=== PATIENT | female | born 1985 | race Caucasian/White ===

== ENCOUNTER 2020-09-30 13:30 | Emergency (ER) | payer SELFPAY ==
[~2020-09-30] VITALS: Ht 157.5 cm; Wt 70.7 kg
--- NOTE | 2020-09-30 13:46 | ED Respiratory ---
General Chief Complaint: Respiratory Problems Stated Complaint: SOB Source: patient Exam Limitations: no limitations History of Present Illness Date Seen by Provider: Sep 30, 2020 Time Seen by Provider: 13:35 Initial Comments Patient is a 35-year-old female who presents to the emergency room with a chief complaint of shortness of breath and cough. Patient states that over the course of the last 3 weeks she has had repeated exacerbations of her difficulty breat michael. She has had 2 rounds of steroids and 1 round of azithromycin. Patient states that she does smoke sporadically. Patient tells me that she does have an admitted course of COPD. Patient states that she has not had any fevers chills. She has had a little bit of a sore throat. No nausea vomiting or diarrhea. No symptoms. Last menstrual cycle was about 3 weeks ago she does have a tubal ligation. Patient denies any exposures to fumes or smoke. She denies recent long distance travel. She denies any family history of blood clots. She denies any calf pain or swelling. She had a little bilateral knee pain a couple of days ago. Patient states that during the course of the last 3 weeks she has been through 2 inhalers. She last used steroids about 4 days ago. She has been incarcerated for the last 24 hours. Patient states she did have a rapid Covid swab done 2 days ago that was negative. All other review of systems reviewed and negative except as stated. Timing/Duration: week, getting worse Severity: moderate Prior Episodes/Possible Cause: frequent episodes Modifying Factors: Improves With Albuterol Inhaler, Improves With Albuterol Nebulizer, Improves With Coughing Associated Symptoms: shortness of breath Allergies and Home Medications Allergies Coded Allergies: Penicillins (Verified Allergy, Unknown, 09/30/20) Home Medications Albuterol/Ipratropium 4 Gm Aero, 2 PUFF IH Q6H Prescribed by: SIDNEY VALDIVIA on 09/30/20 144 Prednisone 20 Mg Tab, 40 MG PO DAILY Prescribed by: SIDNEY VALDIVIA on 09/30/20 1447 Patient Home Medication List Home Medication List Reviewed: Yes Review of Systems Review of Systems Constitutional: see HPI EENTM: throat pain Respiratory: cough, short of breath Cardiovascular: no symptoms reported Gastrointestinal: no symptoms reported Genitourinary: no symptoms reported : No Musculoskeletal: no symptoms reported Skin: no symptoms reported All Other Systems Reviewed Negative Unless Noted: Yes Physical Exam Vital Signs - First Documented 09/30/20 13:36 Temp 36.9 Pulse 111 Resp 24 B/P (MAP) 134/84 (101) Pulse Ox 94 O2 Delivery Room Air Capillary Refill : Height: '" Weight: lbs. oz. kg; BMI Method: General Appearance: WD/WN, mild distress Eyes: Bilateral Eye Normal Inspection, Bilateral Eye PERRL, Bilateral Eye EOMI HEENT: PERRL/EOMI Respiratory: decreased breath sounds, accessory muscle use, wheezing Cardiovascular: regular rate, rhythm, tachycardia Gastrointestinal: normal bowel sounds, non tender, soft Extremities: normal range of motion, non-tender, normal inspection, no pedal edema, no calf tenderness Neurologic/Psychiatric: no motor/sensory deficits, alert, normal mood/affect, oriented x 3 Skin: normal color, warm/dry Progress/Results/Core Measures Suspected Sepsis SIRS Temperature: Pulse: Respiratory Rate: Laboratory Tests 09/30/20 13:45: White Blood Count 12.2H Blood Pressure / Mean: Laboratory Tests 09/30/20 13:45: Creatinine 0.71, Platelet Count 314 Results/Orders Lab Results Laboratory Tests Test 09/30/20 13:45 Range/Units White Blood Count 12.2 H 4.3-11.0 10^3/uL Red Blood Count 4.71 4.35-5.85 10^6/uL Hemoglobin 12.4 11.5-16.0 G/DL Hematocrit 38 35-52 % Mean Corpuscular Volume 80 80-99 FL Mean Corpuscular Hemoglobin 26 25-34 PG Mean Corpuscular Hemoglobin Concent 33 32-36 G/DL Red Cell Distribution Width 15.4 H 10.0-14.5 % Platelet Count 314 130-400 10^3/uL Mean Platelet Volume 9.6 7.4-10.4 FL Immature Granulocyte % (Auto) 0 % Neutrophils (%) (Auto) 70 42-75 % Lymphocytes (%) (Auto) 21 12-44 % Monocytes (%) (Auto) 5 0-12 % Eosinophils (%) (Auto) 4 0-10 % Basophils (%) (Auto) 0 0-10 % Neutrophils # (Auto) 8.5 H 1.8-7.8 X 10^3 Lymphocytes # (Auto) 2.6 1.0-4.0 X 10^3 Monocytes # (Auto) 0.6 0.0-1.0 X 10^3 Eosinophils # (Auto) 0.4 H 0.0-0.3 10^3/uL Basophils # (Auto) 0.0 0.0-0.1 10^3/uL Immature Granulocyte # (Auto) 0.1 0.0-0.1 10^3/uL D-Dimer 0.39 0.00-0.49 UG/ML Sodium Level 137 135-145 MMOL/L Potassium Level 4.1 3.6-5.0 MMOL/L Chloride Level 104 98-107 MMOL/L Carbon Dioxide Level 22 21-32 MMOL/L Anion Gap 11 5-14 MMOL/L Blood Urea Nitrogen 18 7-18 MG/DL Creatinine 0.71 0.60-1.30 MG/DL Estimat Glomerular Filtration Rate > 60 BUN/Creatinine Ratio 25 Glucose Level 104 70-105 MG/DL Calcium Level 9.2 8.5-10.1 MG/DL My Orders Orders - SIDNEY VALDIVIA MD Cbc With Automated Diff (09/30/20 13:46) Basic Metabolic Panel (09/30/20 13:46) Fibrin Degradation Products (09/30/20 13:46) Chest 1 View Ap/Pa Only (09/30/20 13:46) Methylprednisolone Sod Succ (Solu-Medrol (09/30/20 14:00) Methylprednisolone Sod Succ (Solu-Medrol (09/30/20 14:15) Albuterol/Ipra Inhalation Soln (Duoneb I (09/30/20 14:15) Svn Small Volume Nebulizer (09/30/20 14:11) Albuterol/Ipra Inhalation Soln (Duoneb I (09/30/20 14:10) Medications Given in ED Current Medications Medications Dose Ordered Sig/Manuel Route Start Time Stop Time Status Last Admin Dose Admin Albuterol/ Ipratropium 3 ml ONCE ONCE INH 09/30/20 14:15 09/30/20 14:16 DC 09/30/20 14:13 3 ML Methylprednisolone Sodium Succinate 125 mg ONCE ONCE IVP 09/30/20 14:15 09/30/20 14:16 DC 09/30/20 14:10 125 MG Vital Signs/I&O 09/30/20 13:36 Temp 36.9 Pulse 111 Resp 24 B/P (MAP) 134/84 (101) Pulse Ox 94 O2 Delivery Room Air Capillary Refill : Progress Note : Time: 14:09 Progress Note Patient remains tight and wheezy. Still with mild to moderate respiratory distress, oxygen saturations off oxygen 91-92% when resting when taking a big deep breath she is 95%. 1445 Reevaluated, patient seems to be breathing much easier, no respiratory distress. LAbs within normal limits and Ddimer is negative. Patient just has a little scant expiratory wheeze noted on the right posterior lung arita. Patient is comfortable with discharge to home. All questions have been sought and a nswered. She will be discharged to home with prednisone and a Combivent inhaler. Diagnostic Imaging Diagonstic Imaging: Xray Plain Films/CT/US/NM/MRI: chest Comments [facility] [place]. [place], [place] NAME: ZAK HERNANDEZ [facility] REC#: [id number] PT STATUS: REG ER : 1985 PHYSICIAN: SIDNEY VALDIVIA MD ADMIT DATE: 09/30/20/ER FS Draft Date of Exam:09/30/20 CHEST 1 VIEW AP/PA ONLY INDICATION: short of breath and cough. TECHNIQUE: Single view chest 1:49 PM. CORRELATION STUDY: None FINDINGS: The heart size, mediastinal configuration and pulmonary vascularity are within normal limits. The lungs are clear with no consolidating infiltrate. There is no significant effusion or pneumothorax. IMPRESSION: 1. Negative for acute abnormality of the chest. Dictated on workstation # [id number] Dict: 09/30/20 1401 Trans: 09/30/20 1401 DO [id number] Interpreted by: CIARA SAINZ DO Electronically signed by: Departure Impression Primary Impression: COPD exacerbation Disposition: 01 HOME, SELF-CARE Condition: Stable Departure-Patient Inst. Decision time for Depature: 14:46 [address]: [facility] [place] Patient Instructions: Exacerbation of COPD Add. Discharge Instructions: Drink plenty of fluids to stay well-hydrated. Take the prednisone daily for the next 6 days as directed. I have also written you a prescription for a Combivent inhaler. Take this 2 puffs every 6 hours. You can use your albuterol inhaler in between as needed. Return to the emergency department for any worsening symptoms of shortness of breath, cough, any other emergent concerns. Scripts Albuterol/Ipratropium (Combivent Respimat Inhal [place]) 4 Gm Aero 2 PUFF IH Q6H, #1 INH Prov: SIDNEY VALDIVIA MD 09/30/20 Prednisone (Prednisone) 20 Mg Tab 40 MG PO DAILY, #6 TAB 0 Refills Prov: SIDNEY VALDIVIA MD 09/30/20 SIDNEY VALDIVIA MD Sep 30, 2020 13:45
[2020-09-30 13:57] LABS: HEMATOCRIT 38 % (35-52); HEMOGLOBIN 12.4 G/DL (11.5-16.0); MEAN CORPUSCULAR HEMOGLOBIN 26 PG (25-34); MEAN CORPUSCULAR HGB CONC 33 G/DL (32-36); MEAN CORPUSCULAR VOLUME 80 FL (80-99); MEAN PLATELET VOLUME 9.6 FL (7.4-10.4); NEUTROPHILS % (AUTO) 70 % (42-75); PLATELET COUNT 314 10^3/uL (130-400); WHITE BLOOD COUNT 12.2 10^3/uL (4.3-11.0)
[2020-09-30 13:58] LABS: BASOPHILS % (AUTO) 0 % (0-10); EOSINOPHILS # (AUTO) 0.4 10^3/uL (0.0-0.3); EOSINOPHILS % (AUTO) 4 % (0-10); LYMPHOCYTES # (AUTO) 2.6 X 10^3 (1.0-4.0); LYMPHOCYTES % (AUTO) 21 % (12-44); MONOCYTES # (AUTO) 0.6 X 10^3 (0.0-1.0); MONOCYTES % (AUTO) 5 % (0-12); NEUTROPHILS # (AUTO) 8.5 X 10^3 (1.8-7.8)
[2020-09-30] MEDS ORDERED: methylPREDNISolone 125 MG (Solu-MEDROL) VIAL IM ONE (14:00)
--- NOTE | 2020-09-30 14:01 | Diagnostic Imaging Report ---
INDICATION: short of breath and cough. TECHNIQUE: Single view chest 1:49 PM. CORRELATION STUDY: None FINDINGS: The heart size, mediastinal configuration and pulmonary vascularity are within normal limits. The lungs are clear with no consolidating infiltrate. There is no significant effusion or pneumothorax. IMPRESSION: 1. Negative for acute abnormality of the chest. Dictated by: Dictated on workstation # [id number]
[2020-09-30] MEDS ORDERED: RT-ALBUTEROL/IPRATROPIUM 3 ML (DUONEB) VIAL ONE (14:10)
[2020-09-30] MEDS ORDERED: methylPREDNISolone 125 MG (Solu-MEDROL) VIAL IVP ONE (14:15)
[2020-09-30] MEDS ORDERED: RT-ALBUTEROL/IPRATROPIUM 3 ML (DUONEB) VIAL INH ONE (14:15)
[2020-09-30 14:17] LABS: BUN/CREATININE RATIO 25; CALCIUM 9.2 MG/DL (8.5-10.1); CARBON DIOXIDE 22 MMOL/L (21-32); CHLORIDE 104 MMOL/L (98-107); CREATININE SERUM 0.71 MG/DL (0.60-1.30); GFR ESTIMATED > 60; GLUCOSE 104 MG/DL (70-105); POTASSIUM 4.1 MMOL/L (3.6-5.0); SODIUM 137 MMOL/L (135-145)
[2020-09-30] MEDS ORDERED: IPRA4AER IH (14:47)
[2020-09-30] MEDS ORDERED: PRD20T PO (14:47)
[2020-09-30 14:58] VITALS: BP 106/58
== END 2020-09-30 15:33 | disposition home or self-care (01) ==
LOC: ER FS 13:32
DX: J44.1 Chronic obstructive pulmonary disease with (acute) exacerbation (principal); Z88.0 Allergy status to penicillin; Z79.52 Long term (current) use of systemic steroids
CPT/HCPCS: 36415; 71045; 80048; 85025; 85379

== ENCOUNTER 2020-12-22 18:00 | Emergency (ER) | payer SELFPAY ==
[~2020-12-22] VITALS: Ht 157 cm; Wt 62.0 kg
[~2020-12-22 18:00] MED LIST: IPRA4AER IH; PRD20T PO
[2020-12-22] MEDS ORDERED: methylPREDNISolone 125 MG (Solu-MEDROL) VIAL ONE (18:01)
[2020-12-22] MEDS ORDERED: RT-ALBUTEROL SULF 2.5 MG/3 ML PRE-MIX VIAL ONE (18:02)
[2020-12-22 18:43] LABS: ALBUMIN 4.1 GM/DL (3.2-4.5); CHLORIDE 106 MMOL/L (98-107); POTASSIUM 4.7 MMOL/L (3.6-5.0); SODIUM 137 MMOL/L (135-145)
[2020-12-22 18:44] LABS: CALCIUM 9.1 MG/DL (8.5-10.1)
[2020-12-22 18:45] LABS: GLUCOSE 91 MG/DL (70-105); TOTAL PROTEIN 7.8 GM/DL (6.4-8.2)
[2020-12-22] MEDS ORDERED: RT-ALBUTEROL SULF 2.5 MG/3 ML PRE-MIX VIAL INH ONE (18:45)
[2020-12-22] MEDS ORDERED: methylPREDNISolone 125 MG (Solu-MEDROL) VIAL IVP ONE (18:45)
[2020-12-22 18:46] LABS: BASOPHILS # (AUTO) 0.1 10^3/uL (0.0-0.1); BASOPHILS % (AUTO) 1 % (0-10); CARBON DIOXIDE 20 MMOL/L (21-32); EOSINOPHILS # (AUTO) 0.5 10^3/uL (0.0-0.3); EOSINOPHILS % (AUTO) 6 % (0-10); HEMATOCRIT 37 % (35-52); HEMOGLOBIN 11.8 g/dL (11.5-16.0); LYMPHOCYTES # (AUTO) 1.9 10^3/uL (1.0-4.0); LYMPHOCYTES % (AUTO) 20 % (12-44); MEAN CORPUSCULAR HEMOGLOBIN 26 pg (25-34); MEAN CORPUSCULAR HGB CONC 32 g/dL (32-36); MEAN CORPUSCULAR VOLUME 81 fL (80-99); MEAN PLATELET VOLUME 10.2 fL (9.0-12.2); MONOCYTES # (AUTO) 0.4 10^3/uL (0.0-1.0); MONOCYTES % (AUTO) 4 % (0-12); NEUTROPHILS # (AUTO) 6.7 10^3/uL (1.8-7.8); NEUTROPHILS % (AUTO) 69 % (42-75); PLATELET COUNT 336 10^3/uL (130-400); WHITE BLOOD COUNT 9.7 10^3/uL (4.3-11.0)
[2020-12-22 18:47] LABS: BILIRUBIN,TOTAL 0.9 MG/DL (0.1-1.0)
[2020-12-22 18:49] LABS: ALKALINE PHOSPHATASE 64 U/L (40-136); CREATININE SERUM 0.86 MG/DL (0.60-1.30); GFR ESTIMATED > 60
[2020-12-22 18:50] LABS: BUN/CREATININE RATIO 15
[2020-12-22 18:52] LABS: ALANINE AMINOTRANSFERASE 34 U/L (0-55)
--- NOTE | 2020-12-22 19:16 | Diagnostic Imaging Report ---
INDICATION: Asthma, shortness of breath. COMPARISON: 09/30/2020. EXAMINATION: Single view of the chest was obtained. FINDINGS: There is some slight hyperinflation. There is some increasing lung markings in the medial right lung base. The left lung is clear. There is no pneumothorax or effusion. The heart is normal. Osseous structures are normal. IMPRESSION: 1. Slight hyperexpansion with questionable developing infiltrate in the right base. Follow-up recommended. 2. No pneumothorax. Dictated by: Dictated on workstation # [id number]
--- NOTE | 2020-12-22 19:33 | ED Respiratory ---
General Chief Complaint: Respiratory Problems Stated Complaint: ASTHMA ATTACK Nursing Triage Note: PT TO ROOM 5 PER W/C PT SENT BY [facility] W ASTHMA ATTACK, PT IN RESP DISTRESS AT THIS X. PT STATES STARTED LAST EVENING. History of Present Illness Date Seen by Provider: Dec 22, 2020 Time Seen by Provider: 18:00 Initial Comments 35-year-old female presents for acute asthma attack. She has a longstanding history of asthma and has been hospitalized twice over the last several months related to this in [place]. She has no known Covid exposure and is refusing Covid testing. She has been using her albuterol every 3 hours with no improvement in her symptoms. She was briefly seen at [facility] and referred here for definitive treatment. She has not had any steroid for 7 days. Timing/Duration: just prior to arrival, getting worse Severity: moderate Prior Episodes/Possible Cause: frequent episodes Modifying Factors: Improves With Albuterol Nebulizer Associated Symptoms: No chest pain/soreness; cough; No fever/chills; shortness of breath, wheezing Allergies and Home Medications Allergies Coded Allergies: Penicillins (Verified Allergy, Unknown, 09/30/20) Home Medications Albuterol/Ipratropium 4 Gm Aero, 2 PUFF IH Q6H Prescribed by: SIDNEY VALDIVIA on 09/30/20 1447 Prednisone 20 Mg Tab, 40 MG PO DAILY Prescribed by: SIDNEY VALDIVIA on 09/30/20 1447 Patient Home Medication List Home Medication List Reviewed: Yes Review of Systems Review of Systems Constitutional: no symptoms reported, see HPI Respiratory: see HPI, short of breath, wheezing All Other Systems Reviewed Negative Unless Noted: Yes Past Tsjdgel-Ywyalb-Zfxkzw Hx Past Med/Social Hx: Reviewed Nursing Past Med/Soc Hx Patient Social History Alcohol Use: Denies Use Smoking Status: Former Smoker Type Used: Cigarettes Former Smoker, Quit: Nov 23, 2020 2nd Hand Smoke Exposure: No Recent Infectious Disease Expo: No Recent Hopitalizations: Yes (ASTHMA) Seasonal Allergies Seasonal Allergies: No Past Medical History Surgeries: Yes Tubal Ligation Respiratory: Yes COPD Cardiac: No Neurological: No Genitourinary: No Gastrointestinal: No Musculoskeletal: No Endocrine: No HEENT: No Cancer: No Psychosocial: No Integumentary: No Blood Disorders: No Physical Exam Vital Signs - First Documented 12/22/20 12/22/20 18:00 18:34 Temp 36.1 Pulse 112 Resp 24 B/P (MAP) 161/101 (121) Pulse Ox 88 O2 Delivery Room Air O2 Flow Rate 5.00 Capillary Refill : Less Than 3 Seconds Height: '" Weight: lbs. oz. kg; 25.00 BMI Method: General Appearance: WD/WN, moderate distress HEENT: PERRL/EOMI, normal ENT inspection, TMs normal, pharynx normal Respiratory: chest non-tender, respiratory distress, decreased breath sounds Cardiovascular: normal peripheral pulses, regular rate, rhythm, tachycardia Gastrointestinal: normal bowel sounds, non tender, soft Neurologic/Psychiatric: no motor/sensory deficits, alert, normal mood/affect, oriented x 3 Skin: normal color, warm/dry Progress/Results/Core Measures Suspected Sepsis Recent Fever Within 48 Hours: No Infection Criteria Present: Suspected New Infection New/Unexplained Altered Menta: No Sepsis Screen: Possible Severe Sepsis Risk SIRS Temperature: Pulse: 112 Respiratory Rate: 24 Laboratory Tests 12/22/20 18:09: White Blood Count 9.7 Blood Pressure 161 /101 Mean: 121 Laboratory Tests 12/22/20 18:09: Creatinine 0.86, Platelet Count 336, Total Bilirubin 0.9 Results/Orders Lab Results Laboratory Tests Test 12/22/20 18:09 Range/Units White Blood Count 9.7 4.3-11.0 10^3/uL Red Blood Count 4.61 3.80-5.11 10^6/uL Hemoglobin 11.8 11.5-16.0 g/dL Hematocrit 37 35-52 % Mean Corpuscular Volume 81 80-99 fL Mean Corpuscular Hemoglobin 26 25-34 pg Mean Corpuscular Hemoglobin Concent 32 32-36 g/dL Red Cell Distribution Width 15.4 H 10.0-14.5 % Platelet Count 336 130-400 10^3/uL Mean Platelet Volume 10.2 9.0-12.2 fL Immature Granulocyte % (Auto) 0 % Neutrophils (%) (Auto) 69 42-75 % Lymphocytes (%) (Auto) 20 12-44 % Monocytes (%) (Auto) 4 0-12 % Eosinophils (%) (Auto) 6 0-10 % Basophils (%) (Auto) 1 0-10 % Neutrophils # (Auto) 6.7 1.8-7.8 10^3/uL Lymphocytes # (Auto) 1.9 1.0-4.0 10^3/uL Monocytes # (Auto) 0.4 0.0-1.0 10^3/uL Eosinophils # (Auto) 0.5 H 0.0-0.3 10^3/uL Basophils # (Auto) 0.1 0.0-0.1 10^3/uL Immature Granulocyte # (Auto) 0.0 0.0-0.1 10^3/uL Sodium Level 137 135-145 MMOL/L Potassium Level 4.7 3.6-5.0 MMOL/L Chloride Level 106 98-107 MMOL/L Carbon Dioxide Level 20 L 21-32 MMOL/L Anion Gap 11 5-14 MMOL/L Blood Urea Nitrogen 13 7-18 MG/DL Creatinine 0.86 0.60-1.30 MG/DL Estimat Glomerular Filtration Rate > 60 BUN/Creatinine Ratio 15 Glucose Level 91 70-105 MG/DL Calcium Level 9.1 8.5-10.1 MG/DL Corrected Calcium 9.0 8.5-10.1 MG/DL Total Bilirubin 0.9 0.1-1.0 MG/DL Aspartate Amino Transf (AST/SGOT) 65 H 5-34 U/L Alanine Aminotransferase (ALT/SGPT) 34 0-55 U/L Alkaline Phosphatase 64 40-136 U/L C-Reactive Protein High Sensitivity 0.21 0.00-0.50 MG/DL Total Protein 7.8 6.4-8.2 GM/DL Albumin 4.1 3.2-4.5 GM/DL My Orders Orders - HENRIETTA ROBLERO Cbc With Automated Diff (12/22/20 18:31) Comprehensive Metabolic Panel (12/22/20 18:31) Hs C Reactive Protein (12/22/20 18:31) Influenza A And B Antigens (12/22/20 18:31) Covid 19 Inhouse Test (12/22/20 18:31) Chest 1 View, Ap/Pa Only (12/22/20 18:31) Methylprednisolone Sod Succ (Solu-Medrol (12/22/20 18:45) Arterial Blood Gas (12/22/20 18:44) Hydroxyzine Cap/Tab (Vistaril) (12/22/20 20:00) Medications Given in ED Current Medications Medications Dose Ordered Sig/Manuel Route Start Time Stop Time Status Last Admin Dose Admin Albuterol Sulfate 15 mg ONCE ONCE INH 12/22/20 18:45 12/22/20 18:57 DC 12/22/20 18:09 15 MG Methylprednisolone Sodium Succinate 125 mg ONCE ONCE IVP 12/22/20 18:45 12/22/20 18:46 DC 12/22/20 18:09 125 MG Vital Signs/I&O 12/22/20 12/22/20 18:00 18:34 Temp 36.1 Pulse 112 Resp 24 B/P (MAP) 161/101 (121) Pulse Ox 88 99 O2 Delivery Room Air Nasal Cannula O2 Flow Rate 5.00 Capillary Refill : Less Than 3 Seconds Blood Pressure Mean: 121 Progress Note : Time: 18:00 Progress Note Patient seen and evaluated. Initial SaO2 88% on room air. Applied oxygen at 10 L per nasal cannula immediately improved to 91 then 94%. Began Duoneb treatment. SaO2 99%, decreased O2 per NC to 5L. 1814 RT here, to start hour long albuterol. SoluMedrol 125 mg IV. Patient having less labored breathing. Spoke to Dr. Mota, agreed with plan to admit to ICU. 1899 patient has improved air movement with some wheezing in both lower lobes. Will obtain a chest x-ray. Patient is continuing to refuse Covid and flu testing as well as ABG. Patient wishes to be discharged to home. explained she is a critical and needs further treatment/monitoring in the ICU. Patient understands if she leaves, it could result in and she will need to sign AMA. SaO2 96% on RA, continues to have labored breathing, resp rate 24/min. She will see the TELEGRAPH MESSENGER at the [facility] in [place] tomorrow. 1999 D/C instructions and AMA discussed with the patient. Return precautions reviewed with her. She has a nebulizer machine and O2 at home. Diagnostic Imaging Diagonstic Imaging: Xray Plain Films/CT/US/NM/MRI: chest Comments NAME: ZAK HERNANDEZ MED REC#: [id number] PT STATUS: REG ER : 1985 PHYSICIAN: HENRIETTA ROBLERO ADMIT DATE: 12/22/20/ER Draft Date of Exam:12/22/20 CHEST 1 VIEW, AP/PA ONLY INDICATION: Asthma, shortness of breath. COMPARISON: 09/30/2020. EXAMINATION: Single view of the chest was obtained. FINDINGS: There is some slight hyperinflation. There is some increasing lung markings in the medial right lung base. The left lung is clear. There is no pneumothorax or effusion. The heart is normal. Osseous structures are normal. IMPRESSION: 1. Slight hyperexpansion with questionable developing infiltrate in the right base. Follow-up recommended. 2. No pneumothorax. Dictated on workstation # [id number] Dict: 12/22/201912 Trans: 12/22/201914 [id number] Interpreted by: MATEO CARCAMO Electronically signed by: Reviewed: Reviewed by Me Departure Impression Primary Impression: Status asthmaticus Qualified Codes: J45.22 - Mild intermittent asthma with status asthmaticus Disposition: 07 AGAINST MEDICAL ADVICE Condition: Critical Departure-Patient Inst. Decision time for Depature: 19:45 Referrals: AYDEN RUSSELL (PCP/Family) Primary Care Physician Patient Instructions: Asthma, Adult (DC) Add. Discharge Instructions: Continue your home medications for asthma until follow-up with [facility]. See [facility] tomorrow. Keep appt with Pulmonology for next week. Use your oxygen for Shortness of Breath. Take the steroids, as prescribed. Return to the emergency department for difficulty breathing or new urgent healthcare needs. All discharge instructions reviewed with patient and/or family. Voiced understanding. Copy Copies To 1: GIACOMO CEVALLOS AMY ARNP Dec 22, 2020 19:33
[2020-12-22] MEDS ORDERED: hydrOXYzine (VISTARIL/ATARAX) 25 MG capsule/tablet PO ONE (20:00)
[2020-12-22 20:34] VITALS: BP 144/110
== END 2020-12-22 20:34 | disposition left against medical advice (07) ==
LOC: EDUNIT# 18:01 → ER 18:03
DX: J44.9 Chronic obstructive pulmonary disease, unspecified (principal); Z87.891 Personal history of nicotine dependence; Z79.52 Long term (current) use of systemic steroids; Z88.0 Allergy status to penicillin
CPT/HCPCS: 36415; 71045; 80053; 85025; 86141; 94640

== ENCOUNTER 2021-02-04 05:40 | Emergency (ER) | payer SELFPAY ==
[~2021-02-04] VITALS: Ht 157.4 cm; Wt 63.5 kg
[2021-02-04 05:49] VITALS: BP 119/75
[2021-02-04] MEDS ORDERED: predniSONE 20 MG TAB PO STA (06:04)
--- NOTE | 2021-02-04 06:11 | ED Dyspnea ---
General Chief Complaint: Respiratory Problems Stated Complaint: SOB Nursing Triage Note: Patient called EMS because she was having an asthma attack. Patient was given a DuoNeb during transport. Patient states that she is feeling better on arrival to ER. Source of Information: Patient, EMS, Old Records History of Present Illness Date Seen by Provider: Feb 04, 2021 Time Seen by Provider: 05:49 Initial Comments 35 yo female presenting by EMS with shortness of breath and wheezing. She reports having increased shortness of breath and chest tightness in the last few days. She denies being out of any of her medications. She states that she woke up and felt like she was having an asthma attack. while she was trying to take a breathing treatment she felt like she was also having a panic attack and became more anxious. The anxiety was making her breathing worse. By the time EMS arrived and gave her breathing treatment with a DuoNeb she was starting to improve and on arrival to the ED she states she feels much improved. She feels like she has not been having any fever or chills. She denies feeling like she needs an antibiotic or work-up for infection. She feels like she needs steroids on top of her medications that she already has. She states she does have a nebulizer with medication as well as an inhaler and Breo. Severity: Severe Activities at Onset: Sleeping (Became emotionally distressed when she woke up and was short of breath) Prior Episodes/Possible Cause: Chronic Episodes, Frequent Episodes Associated Symptoms: Anxiety, Cough, Wheezing Allergies and Home Medications Allergies Coded Allergies: Penicillins (Verified Allergy, Unknown, 09/30/20) Home Medications Albuterol/Ipratropium 4 Gm Aero, 2 PUFF IH Q6H Prescribed by: SIDNEY VALDIVIA on 09/30/20 1447 Prednisone 20 Mg Tab, 20 MG PO DAILY Take 3 tabs(60mg)daily,decrease by 1/2 tab(10mg)every other day. Prescribed by: ANTHONY SIMMONS on 02/04/21 0618 Patient Home Medication List Home Medication List Reviewed: Yes Review of Systems Review of Systems Constitutional: No chills, No fever EENTM: nose congestion Respiratory: cough, short of breath, wheezing Cardiovascular: No chest pain (Tightness with her shortness of breath) Gastrointestinal: no symptoms reported Genitourinary: no symptoms reported Musculoskeletal: no symptoms reported Skin: no symptoms reported Psychiatric/Neurological: Anxiety Endocrine: No Symptoms Reported Past Keezacp-Ciikmj-Bsabju Hx Past Med/Social Hx: Reviewed Nursing Past Med/Soc Hx Patient Social History Alcohol Use: Denies Use Type Used: Cigarettes Former Smoker, Quit: Dec 06, 2020 2nd Hand Smoke Exposure: No Recent Infectious Disease Expo: No Recent Hopitalizations: Yes (ASTHMA) Seasonal Allergies Seasonal Allergies: No Past Medical History Surgeries: Yes Tubal Ligation Respiratory: Yes Asthma, COPD Cardiac: No Neurological: No Genitourinary: No Gastrointestinal: No Musculoskeletal: No Endocrine: No HEENT: No Cancer: No Psychosocial: No Integumentary: No Blood Disorders: No Physical Exam Vital Signs Vital Signs - First Documented 02/04/21 05:49 Temp 36.0 Pulse 80 Resp 20 B/P (MAP) 119/75 (90) Pulse Ox 97 O2 Delivery Room Air Capillary Refill : Less Than 3 Seconds Height, Weight, BMI Height: '" Weight: lbs. oz. kg; 25.00 BMI Method: General Appearance: Mild Distress, Thin HEENT: PERRL/EOMI Neck: Full Range of Motion, Normal Inspection, Non Tender, Supple Respiratory: Chest Non Tender, No Respiratory Distress, Decreased Breath Sounds, Wheezing (end inspiratory, left greater than right), Other (speaking in complete sentences) Cardiovascular: Regular Rate, Rhythm, Normal Peripheral Pulses Extremity: Normal Capillary Refill, No Pedal Edema Neurologic/Psychiatric: Alert, Oriented x3 Skin: Normal Color, Warm/Dry; No Cyanosis Progress/Results/Core Measures Results/Orders My Orders Orders - ANTHONY SIMMONS MD Prednisone Tablet (Deltasone Tablet) (02/04/21 06:04) Vital Signs/I&O 02/04/21 05:49 Temp 36.0 Pulse 80 Resp 20 B/P (MAP) 119/75 (90) Pulse Ox 97 O2 Delivery Room Air Blood Pressure Mean: 90 Progress Progress Note : Progress Note patient states she does not have insurance and states she is feeling better and just wants to get steroids by mouth and to go home. she reports feeling like she had a panic attack on top of her underlying asthma and it made it more difficult for her to breath so she needed more help to calm it down. After the EMS treatment with Duoneb she felt things had settled where she felt she was back to her baseline and could go home and the steroids for a few days would help her. With no fever and no consolidated area of decreased breath sounds or changed in breath sounds other than diffuse wheezing an infection is less likely so can defer CXR and labs for now. Advised that if adding steroids to treatments at home does not turn around her symptoms then she would need to be seen again in clinic or ED for further work up and treatment and possible admit if not responding to care. Patient voiced understanding and agreement with plan. Departure Impression Primary Impression: Asthma with exacerbation Qualified Codes: J45.51 - Severe persistent asthma with (acute) exacerbation Disposition: HOME, SELF-CARE Condition: Stable Departure-Patient Inst. Decision time for Depature: 06:20 Referrals: AYDEN RUSSELL (PCP/Family) Primary Care Physician Patient Instructions: Asthma, Adult ED Add. Discharge Instructions: Take the steroid and continue to use your nebulizer and inhalers to help with wheezing and shortness of breath. Return or seek medical care for worsening symptoms or if not improving All discharge instructions reviewed with patient and/or family. Voiced understanding. Scripts Prednisone (Prednisone) 20 Mg Tab 20 MG PO DAILY for Shortness of Breath, #22 TAB Take 3 tabs(60mg)daily,decrease by 1/2 tab(10mg)every other day. Prov: ANTHONY SIMMONS MD 02/04/21 ANTHONY SIMMONS MD Feb 04, 2021 06:11
[2021-02-04] MEDS ORDERED: PRD20T PO (06:18)
== END 2021-02-04 06:22 | disposition home or self-care (01) ==
LOC: EDUNIT# 05:40 → ER FS 05:46
DX: J44.1 Chronic obstructive pulmonary disease with (acute) exacerbation (principal); J45.51 Severe persistent asthma with (acute) exacerbation; Z87.891 Personal history of nicotine dependence; Z88.0 Allergy status to penicillin
CPT/HCPCS: 99283

== ENCOUNTER 2021-07-01 23:17 | Observation (INO) | payer SELFPAY ==
[~2021-07-01] VITALS: Ht 157.4 cm; Wt 57.6 kg
--- OUTSIDE RECORDS SUMMARY | 2021-07-01 23:23 | XMS REPORT | Continuity of Care Document ---
Author Author [facility] Organization [facility] Address [address] [place] [address] Phone Support Name Relationship Address Phone Jose Carlos Enrique [address] [place] [address] Jared Valenzuela [address] [place] [phone] Unavailable Allergies, Adverse Reactions, Alerts No known allergies. Medications Medication Status Dose Units Route Directions Qty Days Start Date End Date Instructions Prednisone Active 40 MG PO DAILY 10 June 17, 2021 7:24am Problems Active Problems Medical Problem Onset Date Status Asthma with exacerbation Active Procedures No procedure information available. Relevant Diagnostic Tests and/or Laboratory Data No known relevant diagnostic tests and/or laboratory data. Health Concerns Health Concerns may be documented in an alternate section. Advance Directives Advance Directive Response Recorded Date/Time Does the patient have an Advance Directive on File? No June 17, 2021 4:39am Do you have a Medical Power of Class A Truck Driver? N o June 17, 2021 4:39am Do you have a Health Care Proxy? No June 17, 2021 4:39am Do you have a Living Will? No June 17, 2021 4:39am Encounters Encounter Location(s) Ar rival/Admit Date Discharge/Depart Date Provider(s) Departed Emergency [facility] ed Ctr-Emergency Department June 17, 2021 4:33am June 17, 2021 8:21am null Assessments No Assessments Information Available Functional Status No Functional Status information available Goals Goals may be documented in an alternate section. Immunizations No Immunization Information Available Mental Status No Mental Status Information Available Medical Equipment No Medical Equipment Information available Insurance Providers Guarantor Earnestine Kessler Address [address] [place] [id number] Contact Info. Home Phone: Payer Policy Id Coverage Id Subscriber's Name Subscriber Id Effective Date Expiration Date Self Pay Self N/A Plan of Treatment Future Tests Future scheduled test information is unavailable Pending Tests Pending diagnostic test information is unavailable Future Visits Future appointment information is unavailable Referrals to Other Providers Referral information is unavailable Future Procedures Future procedure information is unavailable Future Medications Future medication information is unavailable Patient Instructions Asthma (DC) Social History Smoking Status Status Date of Observation Unknown if ever smoked June 17, 2021 4:40am Observation Status Observation Response Panchito e of Response Smoking Status Former Smoker June 17, 2021 4:40am Exposure to Secondhand Smoke Yes June 17, 2021 4:40am Tobacco Type Cigarettes June 17, 2021 4:40am Alcohol Use Unknown 2020 4:40am Assigned Sex Female Vital Signs Vital Reading Result Ref erence Range Collection Date/Time Height 64 [in_i] June 17, 2021 4:35am Weight 58.96 kg June 17, 2021 4:35am Body Temperature 98.1 [degF] 97.5-100.3 June 17, 2021 4:35am Heart Rate 85 /min 60-100 June 17, 2021 8:26am Respiratory rate 28 /min 12-20 June 17, 2021 8:26am Oxygen saturation by Pulse oximetry 100 % 95-100 June 17, 2021 8:26am BP Systolic 137 mm[Hg] 9 0-140 June 17, 2021 4:35am BP Diastolic 62 mm[Hg] 6 0-90 June 17, 2021 4:35am BMI (Body Mass Index) 22.3 kg/m2 June 17, 2021 4:35am
--- OUTSIDE RECORDS SUMMARY | 2021-07-01 23:23 | XMS REPORT | Continuity of Care Document ---
Author Author [facility] Organization [facility] Address [address] [place] [address] Phone Support Name Relationship Address Phone Jose Carlos Enrique [address] [place] [address] Jared Valenzuela [address] [place] [phone] Unavailable Allergies, Adverse Reactions, Alerts No known [...] Do you have a Medical Power of Stroke Coordinator? N o June 17, 2021 4:39am Do you have a Health Care Proxy? No June 17, 2021 4:39am Do you have a Living Will? No June 17, 2021 4:39am Encounters Encounter Location(s) Ar rival/Admit Date Discharge/Depart Date Provider(s) Departed Emergency [facility] ed Ctr-Emergency Department June 17, 2021 4:33am June 17, 2021 8:21am null Assessments No Assessments Information Available Functional Status No Functional Status information available Goals Goals may be documented in an alternate section. Immunizations No Immunization Information Available Mental Status No Mental Status Information Available Medical Equipment No Medical Equipment Information available Insurance Providers Guarantor Earnestine Kessler Address [address] [place] [phone] Contact Info. Home Phone: Payer Policy Id [...]
--- OUTSIDE RECORDS SUMMARY | 2021-07-01 23:23 | XMS REPORT | Clinical Summary ---
Author Author [facility] Organization [facility] Address Unknown Phone Unavailable Care Team Providers Care Travel Journalist Name Role Phone PCP Unavailable Allergies No Known Active Allergies Medications End Date Status Medication Sig Dispensed Refills Start Date Active azithromycin (ZITHROMAX) Take 1 tablet 6 tablet 0 250 MG tabletIndications: (250 mg 0 COPD exacerbation (HCC) total) by mouth daily. Take 2 tablets day one Take 1 tablet daily for 4 additional days Dispense 6 tablets Active benzonatate (TESSALON) Take 1 30 capsule 0 100 MG capsule capsule (100 0 mg total) by mouth 3 (three) times a day as needed for cough. Active albuterol (ACCUNEB) 2.5 Inhale 3 mL 75 mL 0 mg/3 mL (0.083 %) (2.5 mg 0 nebulizer solution total) via nebulizer every 6 (six) hours as needed for wheezing or respiratory distress. Active Problems Not on file Social History Date Tobacco Use Types Packs/Day Years Used Current Every Day Smoker Cigarettes 0.5 15 Smokeless Tobacco: Never Used Comments Alcohol Use Standard Drinks/Week Not Currently 0 (1 standard drink = 0.6 o z pure alcohol) Sex Assigned at Date Recorded Not on file Last Filed Vital Signs Reading Time Taken Comments Vital Sign 162/98 09/19/2020 9:15 PM PRODUCTION GRIP patient coughing in room Blood Pressure 100 09/19/2020 9:15 PM PRODUCTION GRIP Pulse 36.8 C (98.3 F) 09/19/2020 8:40 PM PRODUCTION GRIP Temperature 14 09/19/2020 8:40 PM PRODUCTION GRIP Respiratory Rate 97% 09/19/2020 9:15 PM PRODUCTION GRIP Oxygen Saturation - - Inhaled Oxygen Concentration 70.3 kg (155 lb) 09/19/2020 8:40 PM PRODUCTION GRIP Weight 157.5 cm (5' 2") 09/19/2020 8:40 PM PRODUCTION GRIP Height 28.35 09/19/2020 8:40 PM PRODUCTION GRIP Body Mass Index Plan of Treatment Health Maintenance Due Date Last Done Comments Spirometry # 1983 Td/Tdap# 1983 Tobacco Cessation 1983 Counseling # COVID-19 Vaccine (1) 1995 Cervical Cancer Screening 2004 via Pap Smear Influenza Vaccine (#1) 2021 Pneumococcal Vaccine: 2048 02/24/2014 Pediatrics (0 to 5 Years) and At-Risk Patients (6 to 64 Years) (2 of 2 - PPSV23) Results Not on filefrom Last 3 Months Advance Directives For more information, please contact: [phone] Patient Shutdown Coordinator Explanation Type Date Recorded Health Care Directive
[2021-07-01] MEDS ORDERED: RT-ALBUTEROL/IPRATROPIUM 3 ML (DUONEB) VIAL ONE (23:25)
[2021-07-01] MEDS ORDERED: predniSONE 20 MG TAB ONE (23:26)
[2021-07-01] MEDS ORDERED: predniSONE 20 MG TAB PO ONE (23:30)
[2021-07-01] MEDS ORDERED: RT-ALBUTEROL/IPRATROPIUM 3 ML (DUONEB) VIAL INH ONE (23:30)
[2021-07-01] MEDS ORDERED: RT-ALBUINH IH (23:33)
[2021-07-01] MEDS ORDERED: PRD50T PO (23:33)
--- NOTE | 2021-07-01 23:33 | ED Dyspnea ---
General Stated Complaint: TROUBLE BREATHING History of Present Illness Date Seen by Provider: Jul 01, 2021 Time Seen by Provider: 11:20 Initial Comments 35-year-old female with past medical history significant for asthma presents with an asthma attack tonight. Using her inhaler without any relief. Denies preceding illness, fever or chills. Difficulty speaking on arrival Allergies and Home Medications Allergies Coded Allergies: Penicillins (Verified Allergy, Unknown, 09/30/20) Patient Home Medication List Home Medication List Reviewed: Yes Albuterol/Ipratropium (Combivent Respimat Inhal Hibernia) 4 Gm Aero, 2 PUFF IH Q6H Prescribed by: SIDNEY VALDIVIA on 09/30/20 1447 Prednisone (Prednisone) 20 Mg Tab, 20 MG PO DAILY Prescribed by: ANTHONY SIMMONS on 02/04/21 0618 Review of Systems Review of Systems Constitutional: No chills, No fever EENTM: no symptoms reported Respiratory: cough, short of breath, wheezing Cardiovascular: chest pain; No edema, No palpitations, No syncope Gastrointestinal: No abdominal pain, No nausea, No vomiting Musculoskeletal: No back pain, No joint pain Skin: No change in color, No rash Psychiatric/Neurological: Denies Headache, Denies Numbness, Denies Paresthesia, Denies Weakness Past Tvbybqd-Hvdjqd-Biicfs Hx Patient Social History Tobacco Use?: Yes Seasonal Allergies Seasonal Allergies: No Past Medical History Surgeries: Yes Tubal Ligation Respiratory: Yes Asthma, COPD Cardiac: No Neurological: No Genitourinary: No Gastrointestinal: No Musculoskeletal: No Endocrine: No HEENT: No Cancer: No Psychosocial: No Integumentary: No Blood Disorders: No Physical Exam Vital Signs Vital Signs - First Documented 07/01/21 23:25 Temp 36.6 Pulse 121 Resp 32 B/P (MAP) 133/81 (98) Pulse Ox 87 O2 Delivery Room Air Capillary Refill : Height, Weight, BMI Height: '" Weight: lbs. oz. kg; 25.00 BMI Method: General Appearance: Mild Distress, Thin HEENT: PERRL/EOMI, Normal ENT Inspection Neck: Full Range of Motion, Non Tender Respiratory: Decreased Breath Sounds, Respiratory Distress, Wheezing Cardiovascular: Regular Rate, Rhythm, No JVD Gastrointestinal: Non Tender, Soft Extremity: Normal Capillary Refill, Non Tender Neurologic/Psychiatric: Alert, Oriented x3, No Motor/Sensory Deficits, Normal Mood/Affect Skin: Normal Color, Warm/Dry Progress/Results/Core Measures Results/Orders Lab Results Laboratory Tests Test 07/02/21 00:55 Range/Units White Blood Count 18.1 H 4.3-11.0 10^3/uL Red Blood Count 5.08 3.80-5.11 10^6/uL Hemoglobin 12.0 11.5-16.0 g/dL Hematocrit 39 35-52 % Mean Corpuscular Volume 76 L 80-99 fL Mean Corpuscular Hemoglobin 24 L 25-34 pg Mean Corpuscular Hemoglobin Concent 31 L 32-36 g/dL Red Cell Distribution Width 19.9 H 10.0-14.5 % Platelet Count 387 130-400 10^3/uL Mean Platelet Volume 9.3 9.0-12.2 fL Immature Granulocyte % (Auto) 0 % Neutrophils (%) (Auto) 76 H 42-75 % Lymphocytes (%) (Auto) 15 12-44 % Monocytes (%) (Auto) 4 0-12 % Eosinophils (%) (Auto) 5 0-10 % Basophils (%) (Auto) 0 0-10 % Neutrophils # (Auto) 13.8 H 1.8-7.8 X 10^3 Lymphocytes # (Auto) 2.7 1.0-4.0 X 10^3 Monocytes # (Auto) 0.6 0.0-1.0 X 10^3 Eosinophils # (Auto) 1.0 H 0.0-0.3 10^3/uL Basophils # (Auto) 0.1 0.0-0.1 10^3/uL Immature Granulocyte # (Auto) 0.1 0.0-0.1 10^3/uL Neutrophils % (Manual) 75 % Lymphocytes % (Manual) 14 % Monocytes % (Manual) 4 % Eosinophils % (Manual) 6 % Band Neutrophils 1 % Sodium Level 137 135-145 MMOL/L Potassium Level 4.1 3.6-5.0 MMOL/L Chloride Level 102 98-107 MMOL/L Carbon Dioxide Level 24 21-32 MMOL/L Anion Gap 11 5-14 MMOL/L Blood Urea Nitrogen 11 7-18 MG/DL Creatinine 0.66 0.60-1.30 MG/DL Estimat Glomerular Filtration Rate 101 BUN/Creatinine Ratio 17 Glucose Level 159 H 70-105 MG/DL Calcium Level 9.5 8.5-10.1 MG/DL Corrected Calcium 9.5 8.5-10.1 MG/DL Magnesium Level 1.9 1.6-2.4 MG/DL Total Bilirubin 0.3 0.1-1.0 MG/DL Aspartate Amino Transf (AST/SGOT) 24 5-34 U/L Alanine Aminotransferase (ALT/SGPT) 22 0-55 U/L Alkaline Phosphatase 96 40-136 U/L Total Protein 7.5 6.4-8.2 GM/DL Albumin 4.0 3.2-4.5 GM/DL My Orders Orders - ROVENSTINE,RADHA L DO Albuterol/Ipra Inhalation Soln (Duoneb I (07/01/21 23:30) Svn Small Volume Nebulizer (07/01/21 23:27) Prednisone Tablet (Deltasone Tablet) (07/01/21 23:30) Albuterol/Ipra Inhalation Soln (Duoneb I (07/01/21 23:25) Prednisone Tablet (Deltasone Tablet) (07/01/21 23:26) Albuterol Pre-Mix Nebs (Rt) (Proventil (07/02/21 00:15) Svn Small Volume Nebulizer (07/02/21 00:03) Ed Iv/Invasive Line Start (07/02/21 00:26) Chest 1 View Ap/Pa Only (07/02/21 00:26) Comprehensive Metabolic Panel (07/02/21 00:26) Cbc With Automated Diff (07/02/21 00:26) Magnesium (07/02/21 00:26) Methylprednisolone Sod Succ (Solu-Medrol (07/02/21 00:45) Manual Differential (07/02/21 00:55) Medications Given in ED Current Medications Medications Dose Ordered Sig/Manuel Route Start Time Stop Time Status Last Admin Dose Admin Albuterol Sulfate 5 mg ONCE ONCE INH 07/02/21 00:15 07/02/21 00:16 DC 07/02/21 00:12 5 MG Albuterol/ Ipratropium 3 ml ONCE ONCE INH 07/01/21 23:30 9 23:32 DC 07/01/21 23:56 3 ML Albuterol/ Ipratropium 3 ml STK-MED ONCE .ROUTE 07/01/21 23:25 9/4/21 23:29 DC 07/01/21 23:33 3 ML Methylprednisolone Sodium Succinate 80 mg ONCE ONCE IV 07/02/21 00:45 07/02/21 00:46 DC 07/02/21 00:58 80 MG Prednisone 60 mg ONCE ONCE PO 07/01/21 23:30 07/01/21 23:32 DC 07/01/21 23:34 60 MG Vital Signs/I&O 07/01/21 07/02/21 07/02/21 23:25 01:50 02:22 Temp 36.6 36.6 Pulse 121 121 Resp 32 24 B/P (MAP) 133/81 (98) 131/73 Pulse Ox 87 93 O2 Delivery Room Air Room Air Room Air Progress Progress Note : Progress Note Patient brought in her albuterol inhaler that she has been using, 4 times prior to arrival. Checked expiration date & had December 2018. Patient was unaware. Somewhat improved after 1 Duoneb, but still moderate retractions and diminished BS, repeated x1. Given albuterol 10mg continuous.....still not adequately improved and decision made to admit for OBS. IV started, given solumedrol 80mg, labs and CXR done Diagnostic Imaging Diagonstic Imaging: Xray Plain Films/CT/US/NM/MRI: chest Comments lungs clear, hyper-expanded Departure Communication (Admissions) Time/Spoke to Admitting Phy: 00:[address] Mota who accepts for OBS admission to "step-down" unit for exac asthma Impression Primary Impression: Asthma with acute exacerbation in adult Qualified Codes: J45.901 - Unspecified asthma with (acute) exacerbation Disposition: 30 STILL A PATIENT Condition: Improved Admissions Decision to Admit Reason: Admit from ER (General) Decision to Admit/Date: Jul 02, 2021 Time/Decision to Admit Time: 00:25 Departure-Patient Inst. Decision time for Depature: 23:40 Referrals: AYDEN RUSSELL (PCP/Family) Primary Care Physician RADHA CONNER DO Jul 01, 2021 23:33
[2021-07-02] MEDS ORDERED: RT-ALBUTEROL SULF 2.5 MG/3 ML PRE-MIX VIAL INH ONE (00:15)
[2021-07-02] MEDS ORDERED: methylPREDNISolone 40 MG/ML (Solu-MEDROL) VIAL IV ONE (00:45)
[2021-07-02 01:00] LABS: HEMATOCRIT 39 % (35-52); MEAN CORPUSCULAR HEMOGLOBIN 24 pg (25-34); MEAN CORPUSCULAR VOLUME 76 fL (80-99); WHITE BLOOD COUNT 18.1 10^3/uL (4.3-11.0)
[2021-07-02 01:01] LABS: BASOPHILS # (AUTO) 0.1 10^3/uL (0.0-0.1); BASOPHILS % (AUTO) 0 % (0-10); EOSINOPHILS % (AUTO) 5 % (0-10); LYMPHOCYTES # (AUTO) 2.7 X 10^3 (1.0-4.0); LYMPHOCYTES % (AUTO) 15 % (12-44); MEAN CORPUSCULAR HGB CONC 31 g/dL (32-36); MEAN PLATELET VOLUME 9.3 fL (9.0-12.2); MONOCYTES # (AUTO) 0.6 X 10^3 (0.0-1.0); MONOCYTES % (AUTO) 4 % (0-12); NEUTROPHILS # (AUTO) 13.8 X 10^3 (1.8-7.8); NEUTROPHILS % (AUTO) 76 % (42-75); PLATELET COUNT 387 10^3/uL (130-400)
[2021-07-02 01:19] LABS: BILIRUBIN,TOTAL 0.3 MG/DL (0.1-1.0); CALCIUM 9.5 MG/DL (8.5-10.1); CREATININE SERUM 0.66 MG/DL (0.60-1.30); MAGNESIUM 1.9 MG/DL (1.6-2.4); POTASSIUM 4.1 MMOL/L (3.6-5.0); TOTAL PROTEIN 7.5 GM/DL (6.4-8.2)
[2021-07-02 01:39] LABS: BAND NEUTROPHILS 1 %; EOSINOPHILS % (MANUAL) 6 %; LYMPHOCYTES % (MANUAL) 14 %; MONOCYTES % (MANUAL) 4 %; NEUTROPHILS % (MANUAL) 75 %
[2021-07-02 02:32] VITALS: BP 121/71
[2021-07-02] MEDS ORDERED: RT-ALBUTEROL SULF 2.5 MG/3 ML PRE-MIX VIAL IH PRN (02:45)
[2021-07-02] MEDS ORDERED: CATHETER FLUSH 10 ML SYR IV PRN (03:00)
[2021-07-02] MEDS ORDERED: RT-ALBUTEROL/IPRATROPIUM 3 ML (DUONEB) VIAL INH PRN (03:30)
[2021-07-02 03:48] VITALS: BP 110/71
[2021-07-02 05:10] LABS: BASOPHILS % (AUTO) 0 % (0-10); EOSINOPHILS % (AUTO) 0 % (0-10); HEMATOCRIT 38 % (35-52); HEMOGLOBIN 11.7 g/dL (11.5-16.0); LYMPHOCYTES # (AUTO) 0.5 10^3/uL (1.0-4.0); LYMPHOCYTES % (AUTO) 4 % (12-44); MEAN CORPUSCULAR HEMOGLOBIN 24 pg (25-34); MEAN CORPUSCULAR HGB CONC 31 g/dL (32-36); MEAN CORPUSCULAR VOLUME 78 fL (80-99); MEAN PLATELET VOLUME 9.3 fL (9.0-12.2); MONOCYTES # (AUTO) 0.1 10^3/uL (0.0-1.0); MONOCYTES % (AUTO) 1 % (0-12); NEUTROPHILS # (AUTO) 12.3 10^3/uL (1.8-7.8); NEUTROPHILS % (AUTO) 95 % (42-75); PLATELET COUNT 332 10^3/uL (130-400)
[2021-07-02 05:23] LABS: POTASSIUM 4.1 MMOL/L (3.6-5.0)
[2021-07-02 05:24] LABS: CALCIUM 9.7 MG/DL (8.5-10.1)
[2021-07-02 05:28] LABS: CREATININE SERUM 0.76 MG/DL (0.60-1.30)
[2021-07-02] MEDS ORDERED: CATHETER FLUSH 10 ML SYR IV SCH (06:00)
[2021-07-02] MEDS ORDERED: RT-ALBUTEROL/IPRATROPIUM 3 ML (DUONEB) VIAL INH SCH (06:00)
[2021-07-02] MEDS: RT-ALBUTEROL/IPRATROPIUM 3 ML (DUONEB) VIAL INH SCH ×2 (06:56→11:18)
[2021-07-02] MEDS ORDERED: methylPREDNISolone 125 MG (Solu-MEDROL) VIAL IV SCH (07:00)
--- NOTE | 2021-07-02 07:12 | Diagnostic Imaging Report ---
INDICATION: Shortness of breath, asthma exacerbation Frontal chest obtained at 1219 a.m. and compared to 12/22/20. Heart is normal in size. There is hyperinflation. There is no acute pulmonary infiltrate or pneumothorax or pleural fluid. IMPRESSION: Hyperinflation with no acute infiltrate or acute process. Dictated by: Dictated on workstation # [id number]
[2021-07-02 07:27] VITALS: BP 108/73
[2021-07-02] MEDS ORDERED: LORATADINE (CLARITIN) 10 MG TAB PO ONE (08:15)
[2021-07-02] MEDS ORDERED: predniSONE 20 MG TAB PO SCH (08:15)
[2021-07-02] MEDS ORDERED: MONTELUKAST 10 MG (SINGULAIR) TAB PO ONE (08:15)
[2021-07-02] MEDS ORDERED: ENOXAPARIN 40 MG/0.4 ML (LOVENOX) SYR SC SCH (08:15)
[2021-07-02] MEDS ORDERED: DOCUSATE SODIUM 100 MG (COLACE) CAP PO PRN (08:15)
[2021-07-02] MEDS ORDERED: LOPERAMIDE 2 MG (IMODIUM) TABLET PO PRN (08:15)
[2021-07-02] MEDS ORDERED: ONDANSETRON 4 MG (ZOFRAN) ORAL DISSOLVE TAB PO PRN (08:15)
[2021-07-02] MEDS ORDERED: HYDROcodone/APAP 5 MG/325 MG (LORTAB) TAB PO PRN (08:15)
[2021-07-02] MEDS ORDERED: ADVAIR HFA 115/21 MCG INHALER 8 GM IH SCH (08:15)
[2021-07-02] MEDS ORDERED: ALPRAZolam 0.25 MG (XANAX) TAB PO PRN (08:15)
[2021-07-02] MEDS ORDERED: diphenhydrAMINE 25 MG TAB (BENADRYL) PO PRN (08:15)
[2021-07-02] MEDS ORDERED: MELATONIN 3 MG TABLET PO PRN (08:15)
[2021-07-02] MEDS ORDERED: IBUPROFEN TABLET 200 MG TAB PO PRN (08:15)
[2021-07-02] MEDS ORDERED: CALCIUM CARBONATE 500 MG (TUMS) TAB.CHEW PO PRN (08:15)
--- NOTE | 2021-07-02 08:17 | Short Stay Summary-Hospitalist ---
History of Present Illness HPI/Chief Complaint Chief complaint: Status asthmaticus History present illness: This is a 35-year-old white female with a history of asthma and recent smoking cessation 2 months ago and Covid 1 month ago who presented with wheezing and shortness of breath and status asthmaticus. Patient is currently much improved with less wheezing and she wants to go home. She does take her Singulair every day. Source: patient, family Exam Limitations: no limitations Date Seen 07/02/21 Time Seen by a Provider: 12:00 Attending Physician Kristen Mota Rhonda L Arnp Referring Physician Date of Admission Jul 02, 2021 at 02:22 Home Medications & Allergies Home Medications Reviewed patient Home Medication Reconciliation performed by pharmacy medication reconciliations plant technician/control room operator and/or nursing. Patients Allergies have been reviewed. Allergies Allergies Coded Allergies Penicillins (Verified Allergy, Unknown, 09/30/20) Past Zbebmtt-Htbqwr-Azximq Hx Patient Social History Marrital Status: cohabiting Tobacco Use?: No Smoking Status: Former Smoker Smokeless Tobacco Frequency: Never a User Use of E-Cig and/or Vaping dev: No Use of E-Cig and/or Vaping Glenn: Never a User Substance use?: No Alcohol Use?: No Pt feels they are or have been: No Immunizations Up To Date Tetanus Booster (TDap): Unknown Seasonal Allergies Seasonal Allergies: No Current Status status: No Advance Directives: No Communicates: Verbally Primary Language: Greenlandic Preferred Spoken Language: Greenlandic Is interpretation needed?: No Implanted or Applied Medical D: None Past Medical History Surgeries: Tubal Ligation Asthma, COPD Blood Disorders: No Review of Systems Constitutional: see HPI Respiratory: dyspnea on exertion, short of breath, wheezing Physical Exam Physical Exam Vital Signs Vital Signs - First Documented 07/01/21 07/02/21 23:25 03:01 Temp 36.6 Pulse 121 Resp 32 B/P (MAP) 133/81 (98) Pulse Ox 87 O2 Delivery Room Air FiO2 21 Capillary Refill : Less Than 3 Seconds Height, Weight, BMI Height: '" Weight: lbs. oz. kg; 23.24 BMI Method: General Appearance: No Apparent Distress, WD/WN, Chronically ill HEENT: PERRL/EOMI, Normal ENT Inspection Neck: Full Range of Motion, Non Tender Respiratory: No Accessory Muscle Use, No Respiratory Distress, Decreased Breath Sounds Cardiovascular: Regular Rate, Rhythm, No JVD Gastrointestinal: Non Tender, Soft Extremity: Normal Capillary Refill, Non Tender Neurologic/Psychiatric: Alert, Oriented x3, No Motor/Sensory Deficits, Normal Mood/Affect Skin: Normal Color, Warm/Dry Results Results/Procedures Labs Laboratory Tests 07/02/21 00:55 07/02/21 04:52 Patient resulted labs reviewed. Short Stay Diagnosis Discharge Diagnosis-Short Stay Admission Diagnosis Status asthmaticus Recent COVID-19 pneumonia 1 month ago Smoking cessation 2 months ago Final Discharge Diagnosis Status asthmaticus Recent COVID-19 pneumonia 1 month ago Smoking cessation 2 months ago Conclusion Plan Discharge home KRISTEN MOTA DO Jul 02, 2021 08:17
[2021-07-02] MEDS ORDERED: ACETAMINOPHEN 325 MG TABLET PO PRN (08:30)
[2021-07-02] MEDS ORDERED: RT--FLUTICASONE/SALMETEROL 113-14 (AIRDUO RespiCLICK) IH SCH (08:33)
[2021-07-02] MEDS ORDERED: SENNA W/DOCUSATE (SENOKOT S) TABLET PO SCH (09:00)
[2021-07-02] MEDS ORDERED: LORATADINE (CLARITIN) 10 MG TAB PO SCH (09:00)
[2021-07-02 11:20] VITALS: BP 113/78
[2021-07-02] MEDS ORDERED: MONT10TA32 PO (12:23)
[2021-07-02] MEDS ORDERED: RT-ALBUINH IH (12:23)
[2021-07-02] MEDS ORDERED: ALBU2.5V4 IH (12:23)
[2021-07-02] MEDS ORDERED: PRED10TA22 PO (12:23)
[2021-07-02] MEDS ORDERED: MONTELUKAST 10 MG (SINGULAIR) TAB PO SCH (21:00)
== END 2021-07-02 14:03 | disposition home or self-care (01) ==
LOC: EDUNIT# 23:17 → ER FS 23:20 → CSD 07-02 02:22
PROVIDERS: ADMIT Internal Medicine; ATTEND Internal Medicine
DX: J45.901 Unspecified asthma with (acute) exacerbation (principal); J45.902 Unspecified asthma with status asthmaticus; J44.9 Chronic obstructive pulmonary disease, unspecified; Z79.899 Other long term (current) drug therapy; Z87.891 Personal history of nicotine dependence; Z86.16 Personal history of COVID-19; Z87.01 Personal history of pneumonia (recurrent)
CPT/HCPCS: 36415; 71045; 80048; 80053; 83735; 85007; 85025; 85027; 94640

== ENCOUNTER 2021-12-03 03:42 | Inpatient (IN) | payer SELFPAY ==
[~2021-12-03] VITALS: Ht 157.4 cm; Wt 56.6 kg
[~2021-12-03 03:42] MED LIST changes: +ALBU2.5V4 IH; +MONT-40 PO; +PRD50T PO; +PRED10TA22 PO; +RT-ALBUINH IH
[2021-12-03] MEDS ORDERED: MAGNESIUM 1 GM/100 ML IVPB 100 ML IV STA (03:52)
[2021-12-03] MEDS ORDERED: RT-ALBUTEROL/IPRATROPIUM 3 ML (DUONEB) VIAL ONE (03:54)
[2021-12-03] MEDS ORDERED: methylPREDNISolone 125 MG (Solu-MEDROL) VIAL IVP ONE (04:00)
[2021-12-03] MEDS ORDERED: RT-ALBUTEROL/IPRATROPIUM 3 ML (DUONEB) VIAL INH ONE ×2 (04:00→04:15)
[2021-12-03] MEDS ORDERED: AZITHROMYCIN 250 MG TAB (ZITHROMAX) PO ONE (04:00)
--- NOTE | 2021-12-03 04:12 | ED Respiratory ---
General Chief Complaint: Respiratory Problems Stated Complaint: SOB Source: patient Exam Limitations: no limitations (PASHA VILLARREAL MD) History of Present Illness Date Seen by Provider: Dec 03, 2021 Time Seen by Provider: 03:46 Initial Comments 36-year-old female with past medical history of asthma coming in feeling short of breath and wheezing feeling like she is having an asthma exacerbation. She says she has been getting slightly worse over the past 3 days. She is taken 20 mg of prednisone that she had leftover daily for the past 3 days as well with the last dose yesterday morning. Tried an albuterol nebulizer 30 minutes prior to arrival and was feeling worse so presented to the ER. Has had cough associated with it as well. Denies any chest pain, nausea, vomiting, diarrhea, abdominal pain, weakness, numbness, or any other concerns. (PASHA VILLARREAL MD) Allergies and Home Medications Allergies Coded Allergies: Penicillins (Verified Allergy, Unknown, 09/30/20) Patient Home Medication List Home Medication List Reviewed: Yes (PASHA VILLARREAL MD) Albuterol Sulfate (Albuterol Sulfate) 2.5 Mg/3 Ml Vial.neb, 2.5 MG IH Q1H PRN for SHORTNESS OF BREATH Prescribed by: VINCENT MCGUIRE on 07/02/21 1223 Albuterol Sulfate (Proair Hfa) 1 Puff Puff, 2 PUFF IH Q4H Prescribed by: VINCENT MCGUIRE on 07/02/21 1223 Albuterol/Ipratropium (Combivent Respimat Inhal [place]) 4 Gm Aero, 2 PUFF IH Q6H Prescribed by: SIDNEY VALDIVIA on 09/30/20 1447 Montelukast Sodium (Montelukast Sodium) 10 Mg Tablet, 10 MG PO HS Prescribed by: VINCENT MCGUIRE on 07/02/21 1223 Prednisone (Prednisone) 10 Mg Tab.ds.pk, 10 MG PO DAILY Prescribed by: VINCENT MCGUIRE on 07/02/21 1223 Review of Systems Review of Systems Constitutional: No chills, No fever EENTM: No blurred vision Respiratory: cough, short of breath Cardiovascular: No chest pain Gastrointestinal: No abdominal pain, No diarrhea, No nausea, No vomiting Genitourinary: no symptoms reported Musculoskeletal: no symptoms reported Skin: no symptoms reported Psychiatric/Neurological: No Symptoms Reported Hematologic/Lymphatic: No Symptoms Reported Immunological/Allergic: no symptoms reported (PASHA VILLARREAL MD) All Other Systems Reviewed Negative Unless Noted: Yes (PASHA VILLARREAL MD) Past Rzdrmtj-Gzywnh-Abxews Hx Patient Social History Tobacco Use?: Yes (PASHA VILLARREAL MD) Seasonal Allergies Seasonal Allergies: No (PASHA VILLARREAL MD) Past Medical History Surgeries: Yes Tubal Ligation Respiratory: Yes Asthma, COPD Cardiac: No Neurological: No Genitourinary: No Gastrointestinal: No Musculoskeletal: No Endocrine: No HEENT: No Cancer: No Psychosocial: No Integumentary: No Blood Disorders: No (PASHA VILLARREAL MD) Physical Exam Vital Signs - First Documented 12/03/21 03:45 Temp 37.0 Pulse 144 Resp 24 B/P (MAP) 156/81 (106) Pulse Ox 100 O2 Delivery Room Air (ANTHONY SIMMONS MD) Capillary Refill : (PASHA VILLARREAL MD) Height: '" Weight: lbs. oz. kg; 23.24 BMI Method: General Appearance: WD/WN, moderate distress Eyes: Bilateral Eye Normal Inspection HEENT: PERRL/EOMI, normal ENT inspection, pharynx normal Neck: non-tender, full range of motion, supple, normal inspection Respiratory: chest non-tender, wheezing, other (increased expiratory phase, tachypneic) Cardiovascular: regular rate, rhythm, no edema, no murmur Gastrointestinal: normal bowel sounds, non tender, soft; No distended, No guarding, No rebound Extremities: normal range of motion, non-tender, normal inspection, no pedal edema, no calf tenderness, normal capillary refill Neurologic/Psychiatric: no motor/sensory deficits, alert, normal mood/affect Skin: normal color, warm/dry Lymphatic: no adenopathy (PASHA VILLARREAL MD) Progress/Results/Core Measures Suspected Sepsis SIRS Temperature: Pulse: Respiratory Rate: Laboratory Tests 12/03/21 04:00: White Blood Count 11.4H Blood Pressure / Mean: Laboratory Tests 12/03/21 04:00: Creatinine 0.61, Platelet Count 365, Total Bilirubin 0.3 (PASHA VILLARREAL MD) Results/Orders Lab Results Laboratory Tests Test 12/03/21 04:00 12/03/21 07:06 12/03/21 09:28 Range/Units White Blood Count 11.4 H 4.3-11.0 10^3/uL Red Blood Count 4.34 3.80-5.11 10^6/uL Hemoglobin 10.4 L 11.5-16.0 g/dL Hematocrit 33 L 35-52 % Mean Corpuscular Volume 77 L 80-99 fL Mean Corpuscular Hemoglobin 24 L 25-34 pg Mean Corpuscular Hemoglobin Concent 31 L 32-36 g/dL Red Cell Distribution Width 16.7 H 10.0-14.5 % Platelet Count 365 130-400 10^3/uL Mean Platelet Volume 9.5 9.0-12.2 fL Immature Granulocyte % (Auto) 0 % Neutrophils (%) (Auto) 65 42-75 % Lymphocytes (%) (Auto) 20 12-44 % Monocytes (%) (Auto) 4 0-12 % Eosinophils (%) (Auto) 10 0-10 % Basophils (%) (Auto) 1 0-10 % Neutrophils # (Auto) 7.4 1.8-7.8 X 10^3 Lymphocytes # (Auto) 2.2 1.0-4.0 X 10^3 Monocytes # (Auto) 0.5 0.0-1.0 X 10^3 Eosinophils # (Auto) 1.2 H 0.0-0.3 10^3/uL Basophils # (Auto) 0.1 0.0-0.1 10^3/uL Immature Granulocyte # (Auto) 0.0 0.0-0.1 10^3/uL Sodium Level 141 135-145 MMOL/L Potassium Level 4.3 3.6-5.0 MMOL/L Chloride Level 104 98-107 MMOL/L Carbon Dioxide Level 24 21-32 MMOL/L Anion Gap 13 5-14 MMOL/L Blood Urea Nitrogen 10 7-18 MG/DL Creatinine 0.61 0.60-1.30 MG/DL Estimat Glomerular Filtration Rate 117 BUN/Creatinine Ratio 16 Glucose Level 109 H 70-105 MG/DL Calcium Level 9.2 8.5-10.1 MG/DL Corrected Calcium 9.1 8.5-10.1 MG/DL Total Bilirubin 0.3 0.1-1.0 MG/DL Aspartate Amino Transf (AST/SGOT) 52 H 5-34 U/L Alanine Aminotransferase (ALT/SGPT) 29 0-55 U/L Alkaline Phosphatase 88 40-136 U/L Total Protein 7.1 6.4-8.2 GM/DL Albumin 4.1 3.2-4.5 GM/DL Blood Gas Puncture Site N/A Blood Gas Patient Temperature 37.0 Arterial Blood pH 7.43 7.37-7.43 Arterial Blood Partial Pressure CO2 42 35-45 MMHG Arterial Blood Partial Pressure O2 79 79-93 MMHG Arterial Blood HCO3 28 H 23-27 MMOL/L Arterial Blood Total CO2 29.2 21.0-31.0 MMOL/L Arterial Blood Oxygen Saturation 96 94-100 % Arterial Blood Base Excess 3.2 H -2.5-2.5 MMOL/L Ananth Test NEGATIVE Blood Gas Ventilator Setting NO Blood Gas Inspired Oxygen ROOM AIR Urine Color YELLOW Urine Clarity CLOUDY Urine pH 7.0 5-9 Urine Specific [place] 1.020 1.016-1.022 Urine Protein NEGATIVE NEGATIVE Urine Glucose (UA) NEGATIVE NEGATIVE Urine Ketones NEGATIVE NEGATIVE Urine Nitrite NEGATIVE NEGATIVE Urine Bilirubin NEGATIVE NEGATIVE Urine Urobilinogen 0.2 < = 1.0 MG/DL Urine Leukocyte Esterase NEGATIVE NEGATIVE Urine RBC (Auto) NEGATIVE NEGATIVE Urine RBC NONE /HPF Urine WBC 10-25 H /HPF Urine Squamous Epithelial Cells 25-50 H /HPF Urine Crystals PRESENT H /LPF Urine Amorphous Sediment LARGE ROGER PHOSPHATE H /LPF Urine Bacteria FEW H /HPF Urine Casts NONE /LPF Urine Mucus LARGE H /LPF Urine Culture Indicated NO Urine Opiates Screen NEGATIVE NEGATIVE Urine Oxycodone Screen NEGATIVE NEGATIVE Urine Methadone Screen NEGATIVE NEGATIVE Urine Propoxyphene Screen NEGATIVE NEGATIVE Urine Barbiturates Screen NEGATIVE NEGATIVE Ur Tricyclic Antidepressants Screen NEGATIVE NEGATIVE Urine Phencyclidine Screen NEGATIVE NEGATIVE Urine Amphetamines Screen POSITIVE H NEGATIVE Urine Methamphetamines Screen POSITIVE H NEGATIVE Urine Benzodiazepines Screen NEGATIVE NEGATIVE Urine Cocaine Screen NEGATIVE NEGATIVE Urine Cannabinoids Screen NEGATIVE NEGATIVE (ANTHONY SIMMONS MD) My Orders Orders - ANTHONY SIMMONS MD Lactated Ringers (Lr 1000 Ml Iv Solution (12/03/21 08:07) O2 (12/03/21 08:07) Ua Culture If Indicated (12/03/21 08:07) Drug Screen Stat (Urine) (12/03/21 08:07) (ANTHONY SIMMONS MD) Medications Given in ED Current Medications Medications Dose Ordered Sig/Manuel Route Start Time Stop Time Status Last Admin Dose Admin Albuterol/ Ipratropium 3 ml ONCE ONCE INH 12/03/21 04:00 12/03/21 04:01 DC 12/03/21 03:59 3 ML Albuterol/ Ipratropium 3 ml ONCE ONCE INH 12/03/21 04:15 12/03/21 04:16 DC 12/03/21 04:18 3 ML Azithromycin 500 mg ONCE ONCE PO 12/03/21 04:00 12/03/21 04:01 DC 12/03/21 04:29 500 MG Epinephrine HCl 0.3 mg ONCE ONCE IM 12/03/21 04:30 12/03/21 04:31 DC 12/03/21 04:26 0.3 MG Methylprednisolone Sodium Succinate 125 mg ONCE ONCE IVP 12/03/21 04:00 12/03/21 04:01 DC 12/03/21 04:03 125 MG (ANTHONY SIMMONS MD) Vital Signs/I&O 12/03/21 03:45 Temp 37.0 Pulse 144 Resp 24 B/P (MAP) 156/81 (106) Pulse Ox 100 O2 Delivery Room Air (ANTHONY SIMMONS MD) Vital Signs/I&O Capillary Refill : (PASHA VILLARREAL MD) Progress Note : Progress Note 36-year-old female with above history coming in feeling short of breath. Patient was tachypneic and had inspiratory expiratory wheezes bilaterally on arrival. She was immediately brought back from the waiting room, a DuoNeb was started, IV placed, given IV Solu-Medrol as well as IV magnesium. Given azithromycin given her smoking history as well as cough. Chest x-ray was well as flu and COVID test ordered. Patient refused any swab so unfortunately the viral testing was not completed. Basic labs with white blood count slightly elevated. The patient looks very ill even after getting DuoNeb x2, steroids, and magnesium 2 g. At that point we started a continuous nebulizer therapy through BiPAP and did IM epinephrine. She did start to improve and appears a lot more comfortable. Chest x-ray clear. The hospital did not have beds at the time so I monitored her for a couple hours on BiPAP and she continued to remain stable. Called Dr. Blood in the morning who will admit the patient to the intensive care unit. They should have a bed available sometime this morning around 8 AM depending on staffing. Of note, on review of the chart, the patient had a short stay visit for status asthmaticus, and its possible she will improve while waiting for a bed, wake up, and want to go home. As it stands though she still appears like she needs the ICU. (PASHA VILLARREAL MD) Progress Note #1: Time: 08:06 Progress Note I assumed care of the patient at shift change from Dr. Villarreal. Patient remained stable on BiPap and was advised that they were waiting on an ICU bed at [facility]. We had called around 715 am to check about status of ICU staffing and if they were able to take the patient around 8 am like they had initially told Dr. Villarreal overnight, and were informed that the ICU staff still did not feel comfortable taking this patient in addition to the critical patients they already had in the unit. Around 730 am NIGHAT Goldsmith, the nursing pipe manufacture supervisor called back and stated that he had spoken with Dr. Whiting in the ED at [facility] and that if we were still having trouble managing the patient we could give a dose of Ketamine and if need be she could be transferred to the ED in [place] for management until staffing in the ICU was to the point they felt comfortable taking the patient. However, the patient has been stable for several hours and as Dr. Villarreal was passing over care of the patient he did advise if she stayed stable she could probably be taken off of BiPap and see if she could go to floor bed. Since she had been stable for a few hours on BiPap and was resting comfortably with good air movement will try patient off BiPap as she was not in respiratory distress to the point of needing Ketamine or more aggressive respiratory treatment at the moment. As of 806 am pt was maintaining O2 sats on room air of 93-96% on room air resting in room and was in no respiratory distress currently. When calling back to NIGHAT Goldsmith, to see about a med/surg bed for the patient he wanted to make sure that was ok with the admitting doctor before assigning a bed for the patient. I spoke with Dr. Blood for [facility] as the patient follows with QUAN Joy with [facility] in [place]. Since the patient was still somnolent and not waking up fully he requested we watch her off BiPap for 2 hours and call him back at 10 am. If she was still stable then and had not woken up and decided to leave AMA then he would see about admitting her to a floor bed for continued respiratory support and RT MAT protocol. Progress Note #2: Time: 09:52 Progress Note patient is waking up more easily now and was able to provide a urine specimen. UA did not show infection but was concentrated. UDS was positive for Methamphetamines and Amphetamines. She has some wheezing that recurs prior to needing next breathing treatment. Oxygen saturation remains around 93-96% on room air. She has had some coughing fits with getting up to urinate and moving around as she gets bronchospasms. Asked if she was still ok with admit to [facility] and pt was still agreeable for admit. Updated Dr. Blood and he accepted pt for floor admit. (ANTHONY SIMMONS MD) Diagnostic Imaging Diagonstic Imaging: Xray Plain Films/CT/US/NM/MRI: chest Comments [facility] [place] NAME: ZAK HERNANDEZ [facility] REC#: [id number] PT STATUS: REG ER : 1985 PHYSICIAN: PASHA VILLARREAL MD ADMIT DATE: 12/03/21/ER FS Signed Date of Exam:12/03/21 CHEST 1 VIEW AP/PA ONLY CHEST 1 VIEW AP/PA ONLY Indication: Shortness of breath Comparison: 07/02/2021 Findings: No focal airspace disease in the visualized lungs. Please note that the posterior lower lobes are poorly evaluated by portable radiography. No pleural effusion or pneumothorax. Normal cardiomediastinal silhouette. Impression: 1. No acute cardiopulmonary process by portable radiography. Dictated by: Dictated on workstation # [id number] Dict: 12/03/21629 Trans: 12/03/21630 [facility] [id number] Interpreted by: DANGELO ABRAMS MD Electronically signed by: DANGELO ABRAMS MD 12/03/21630 Reviewed: Reviewed by Me (ANTHONY SIMMONS MD) Critical Care Note Critical Care Start Time: 03:46 Stop Time: 05:05 Total Time (minutes) 79 Progress The patient was at significant risk for respiratory compromise and required frequent reevaluation and interventions including noninvasive ventilation. (PASHA VILLARREAL MD) Departure Communication (Admissions) [address] Blood for [facility] about pt remaining stable off BiPap to see about changing from ICU to floor bed admit for Asthma with exacerbation and Status Asthmaticus. He requested we montior for additional 2 hours to ensure she was stable and not just going to wake up and sign out AMA. Will call him back at [address] Blood updated on patient and she was still having some wheezing when it was time for her next breathing treatment. She did wake up and get up to urinate. She was asked about the admit to [place] and she stated she was still agreeable to being admitted. Will continue with RMAT protocol and steroids. O2 if needed. IVF for hydration. (ANTHONY SIMMONS MD) Impression Primary Impression: Asthma with acute exacerbation in adult Qualified Codes: J45.901 - Unspecified asthma with (acute) exacerbation Additional Impressions: Status asthmaticus Qualified Codes: J45.902 - Unspecified asthma with status asthmaticus Episodic methamphetamine abuse Disposition: 30 STILL A PATIENT Condition: Stable Admissions Decision to Admit Reason: Admit from ER (General) Decision to Admit/Date: Dec 03, 2021 Time/Decision to Admit Time: 07:00 (PASHA VILLARREAL MD) Departure-Patient Inst. Referrals: AYDEN JOY (PCP/Family) Primary Care Physician PASHA VILLARREAL MD Dec 03, 2021 04:12 ANTHONY SIMMONS MD Dec 03, 2021 09:00
[2021-12-03 04:15] LABS: HEMATOCRIT 33 % (35-52); HEMOGLOBIN 10.4 g/dL (11.5-16.0); MEAN CORPUSCULAR HEMOGLOBIN 24 pg (25-34); MEAN CORPUSCULAR VOLUME 77 fL (80-99); WHITE BLOOD COUNT 11.4 10^3/uL (4.3-11.0)
[2021-12-03 04:16] LABS: BASOPHILS # (AUTO) 0.1 10^3/uL (0.0-0.1); BASOPHILS % (AUTO) 1 % (0-10); EOSINOPHILS # (AUTO) 1.2 10^3/uL (0.0-0.3); EOSINOPHILS % (AUTO) 10 % (0-10); LYMPHOCYTES # (AUTO) 2.2 X 10^3 (1.0-4.0); LYMPHOCYTES % (AUTO) 20 % (12-44); MEAN CORPUSCULAR HGB CONC 31 g/dL (32-36); MEAN PLATELET VOLUME 9.5 fL (9.0-12.2); MONOCYTES # (AUTO) 0.5 X 10^3 (0.0-1.0); MONOCYTES % (AUTO) 4 % (0-12); NEUTROPHILS # (AUTO) 7.4 X 10^3 (1.8-7.8); NEUTROPHILS % (AUTO) 65 % (42-75); PLATELET COUNT 365 10^3/uL (130-400)
[2021-12-03] MEDS ORDERED: EPINEPHrine INJECTION 1 MG/ML AMP IM ONE (04:30)
[2021-12-03 04:31] LABS: ALBUMIN 4.1 GM/DL (3.2-4.5); BILIRUBIN,TOTAL 0.3 MG/DL (0.1-1.0); CALCIUM 9.2 MG/DL (8.5-10.1); CREATININE SERUM 0.61 MG/DL (0.60-1.30); POTASSIUM 4.3 MMOL/L (3.6-5.0); TOTAL PROTEIN 7.1 GM/DL (6.4-8.2)
[2021-12-03] MEDS ORDERED: RT-ALBUTEROL SULF 2.5 MG/3 ML PRE-MIX VIAL INH STA (04:31)
--- NOTE | 2021-12-03 06:33 | Diagnostic Imaging Report ---
CHEST 1 VIEW AP/PA ONLY Indication: Shortness of breath Comparison: 07/02/2021 Findings: No focal airspace disease in the visualized lungs. Please note that the posterior lower lobes are poorly evaluated by portable radiography. No pleural effusion or pneumothorax. Normal cardiomediastinal silhouette. Impression: 1. No acute cardiopulmonary process by portable radiography. Dictated by: Dictated on workstation # [id number]
[2021-12-03 07:14] LABS: ABG BASE EXCESS 3.2 MMOL/L (-2.5-2.5); ABG OXYGEN SATURATION 96 % (94-100); ABG PCO2 42 MMHG (35-45); ABG PH 7.43 (7.37-7.43); ABG PO2 79 MMHG (79-93); ABG TCO2 29.2 MMOL/L (21.0-31.0); ALLENS TEST NEGATIVE
[2021-12-03 07:15] LABS: INSPIRED O2 ROOM AIR; VENTILATOR NO
[2021-12-03] MEDS ORDERED: RT-ALBUTEROL SULF 2.5 MG/3 ML PRE-MIX VIAL INH SCH ×2 (08:00→11:45)
[2021-12-03] MEDS ORDERED: LACTATED RINGERS 1,000 ML IV STA (08:07)
[2021-12-03 09:35] LABS: CLARITY,URINE CLOUDY; COLOR,URINE YELLOW
[2021-12-03 09:36] LABS: AMORPHOUS SEDIMENT,UR LARGE AMOR PHOSPHATE /LPF; BACTERIA,URINE FEW /HPF; BILIRUBIN,URINE NEGATIVE (NEGATIVE); GLUCOSE, URINE (UA) NEGATIVE (NEGATIVE); KETONES,URINE NEGATIVE (NEGATIVE); LEUKOCYTE ESTERASE ,URINE NEGATIVE (NEGATIVE); NITRITE,URINE NEGATIVE (NEGATIVE); PROTEIN,URINE NEGATIVE (NEGATIVE); SQUAMOUS EPITHELIAL CELL,UR 25-50 /HPF
[2021-12-03 09:43] LABS: AMPHETAMINE SCREEN, URINE POSITIVE (NEGATIVE); BARBITURATE SCREEN URINE NEGATIVE (NEGATIVE); BENZODIAZEPINES SCREEN URINE NEGATIVE (NEGATIVE); CANNABINOID SCREEN, URINE NEGATIVE (NEGATIVE); COCAINE SCREEN URINE NEGATIVE (NEGATIVE); METHADONE STAT NEGATIVE (NEGATIVE); METHAMPHETAMINE SCREEN URINE S POSITIVE (NEGATIVE); OPIATE SCREEN URINE NEGATIVE (NEGATIVE); OXYCODONE STAT NEGATIVE (NEGATIVE); PROPOXYPHENE STAT NEGATIVE (NEGATIVE); TRICYCLIC ANTIDEPRESSANTS SCRE NEGATIVE (NEGATIVE)
[2021-12-03] MEDS ORDERED: methylPREDNISolone 125 MG (Solu-MEDROL) VIAL IVP SCH (10:00)
[2021-12-03 11:10] VITALS: BP 121/69
[2021-12-03] MEDS: methylPREDNISolone 125 MG (Solu-MEDROL) VIAL IV SCH ×3 (12:11→23:21)
[2021-12-03] MEDS: LACTATED RINGERS 1,000 ML IV SCH ×2 (12:11→22:41)
--- NOTE | 2021-12-03 13:46 | History & Physical-Hospitalist ---
History of Present Illness HPI/Chief Complaint 36-year-old female with past medical history of asthma coming in feeling short of breath and wheezing feeling like she is having an asthma exacerbation. She says she has been getting slightly worse over the past 3 days. She is taken 20 mg of prednisone that she had leftover daily for the past 3 days as well with the last dose yesterday morning. Tried an albuterol nebulizer 30 minutes prior to arrival and was feeling worse so presented to the ER. Has had cough associated with it as well. Denies any chest pain, nausea, vomiting, diarrhea, abdominal pain, weakness, numbness, or any other concerns. Upon my arrival patient was sleeping resting comfortably in no acute distress. She would awaken but did not wish to answer any questions but 1 to go back to bed she voiced no pain or shortness of breath. Her speech was normal. When the nurse earlier ask about meth use she denied it although it was positive on her urine drug screen. She denies headache chills or fever or chest pain Date Seen 12/03/21 Time Seen by a Provider: 13:46 Attending Physician Marcela Morales MD PCP Cami Joy Referring Physician Date of Admission Dec 03, 2021 at 11:05 Home Medications & Allergies Home Medications Reviewed patient Home Medication Reconciliation performed by pharmacy medication reconciliations x ray electronics wiring technician and/or nursing. Patients Allergies have been reviewed. Allergies Allergies Coded Allergies Penicillins (Verified Allergy, Unknown, 09/30/20) Past Mhnbsfs-Qrofdb-Irxdrt Hx Patient Social History Tobacco Use?: Yes Substance use?: No Alcohol Use?: No Pt feels they are or have been: No Immunizations Up To Date Tetanus Booster (TDap): Unknown Seasonal Allergies Seasonal Allergies: No Current Status Advance Directives: No Communicates: Verbally Primary Language: Khmer Preferred Spoken Language: Khmer Is interpretation needed?: No Past Medical History Surgeries: Tubal Ligation Asthma, COPD Blood Disorders: No Review of Systems Constitutional: see HPI Physical Exam Physical Exam Vital Signs Vital Signs - First Documented 12/03/21 03:45 Temp 37.0 Pulse 144 Resp 24 B/P (MAP) 156/81 (106) Pulse Ox 100 O2 Delivery Room Air Capillary Refill : Less Than 3 Seconds Height, Weight, BMI Height: '" Weight: lbs. oz. kg; 22.00 BMI Method: General Appearance: No Apparent Distress Neck: Full Range of Motion, Normal Inspection, Non Tender Respiratory: Chest Non Tender, Lungs Clear, Normal Breath Sounds, No Accessory Muscle Use, No Respiratory Distress Cardiovascular: Regular Rate, Rhythm, No Edema, No Gallop, No JVD, No Murmur, Normal Peripheral Pulses Gastrointestinal: Normal Bowel Sounds, No Organomegaly, No Pulsatile Mass, Non Tender, Soft Extremity: Normal Inspection, Normal Range of Motion, Non Tender, No Calf Tenderness, No Pedal Edema Results Results/Procedures Labs Laboratory Tests 12/03/21 04:00 Patient resulted labs reviewed. Assessment/Plan Admission Diagnosis 1. Status asthmaticus significantly improved continue IV steroids and broncho dilator therapy no evidence for underlying infection so we will not be administering antibiotics. 2. Methamphetamine abuse suspect patient is crashing from a combination of this as well as all of the sympathomimetic she received from the emergency room for treatment of her status asthmaticus including continuous albuterol and epinephrine. Admission Status: Observation MARCELA MORALES MD Dec 03, 2021 13:46
[2021-12-03] MEDS ORDERED: RT-ALBUTEROL SULF 2.5 MG/3 ML PRE-MIX VIAL INH PRN (14:00)
[2021-12-03] MEDS ORDERED: RT-ALBUTEROL SULF 2.5 MG/3 ML PRE-MIX VIAL ONE (14:04)
[2021-12-03] MEDS: RT-ALBUTEROL SULF 2.5 MG/3 ML PRE-MIX VIAL INH SCH ×2 (14:06→19:44)
[2021-12-03 16:47] VITALS: BP 110/63
[2021-12-03 20:58] VITALS: BP 120/64
[2021-12-04] VITALS: BP 124/69
[2021-12-04 04:00] VITALS: BP 119/69
[2021-12-04] MEDS: methylPREDNISolone 125 MG (Solu-MEDROL) VIAL IV SCH ×2 (05:53→12:38)
[2021-12-04] MEDS: RT-ALBUTEROL SULF 2.5 MG/3 ML PRE-MIX VIAL INH SCH ×2 (07:11→10:30)
[2021-12-04] MEDS: LACTATED RINGERS 1,000 ML IV SCH (07:54)
[2021-12-04 08:31] VITALS: BP 130/70
[2021-12-04 12:00] VITALS: BP 122/68
--- NOTE | 2021-12-04 13:14 | Discharge Summary ---
Diagnosis/Chief Complaint Date of Admission Dec 03, 2021 at 11:05 Date of Discharge 12/04/21 Admission Diagnosis Admission Diagnosis AECOPD Substance abuse Discharge Diagnosis See Above Discharge Summary-Simple/Stand Consultations Discharge Physical Examination Allergies: Coded Allergies: Penicillins (Verified Allergy, Unknown, 12/03/21) Vitals & I&Os Vital Sign - Last 12Hours Date Time Temp Pulse Resp B/P (MAP) Pulse Ox O2 Delivery O2 Flow Rate FiO2 12/04/21 12:00 36.7 112 16 122/68 (86) 94 Room Air Intake and Output 12/04/21 00:00 Intake Total 1780 ml Balance 1780 ml General Appearance: Alert, Oriented X3, Cooperative, No Acute Distress HEENT: Mucous Memb Moist/[place] Respiratory: Normal Air Movement, Other (End Exp wheezing, normal work of breathing.) Cardiovascular: Regular Rate, No Murmurs Abdominal: Normal Bowel Sounds, Soft, No Tenderness, No Masses Extremities: No Edema, No Tenderness/Swelling Skin: No Rashes Neuro: Normal Speech, Strength at 5/5 X4 Ext, Sensation Intact, Cranial Nerves 3-12 NL Psych/Mental Status: Mental Status NL, Mood NL Hospital Course Was the Problem List Reviewed?: Yes See final discharge diagnosis. Discussion & Recommendations 36 yo F with h/o COPD that presented with acute respiratory distress. Patient had recently used Meth which seems to have sent her into acute exacerbation. Patient states that she is interested in getting sober and offered outpatient ATS. She states that she will contact [facility] to get enrolled in program. Close f.u with PCP Discharge Condition at discharge stable Instructions to patient/family Please see electronic discharge instructions given to patient. Discharge Medications Reviewed and agree with Discharge Medication list on patient's Discharge Instruction sheet MAGNOLIA THOMAS MD Dec 04, 2021 13:14
[2021-12-04] MEDS ORDERED: PRD20T PO (13:18)
[2021-12-04] MEDS ORDERED: FLUT1DIS26 IH (13:18)
--- NOTE | 2021-12-04 13:21 | Discharge Summary ---
Discharge [facility] Reconcile Patient Problems Problems Reviewed?: Yes Discharge Medications New, Converted or Re-Newed RX: Transmitted to Pharmacy New Medications: Fluticasone/Salmeterol (Advair 250-50 Diskus) 1 Each Blst.w.dev 1 EACH IH BID, #1 EACH Prednisone (Prednisone) 20 Mg Tab 20 MG PO DAILY, #22 TAB Take 3 tabs(60mg)daily x 3 days Take 2 tabs x 3 days Take 1 tab x 3 days taken 1/2 tab x4 days then stop Continued Medications: Albuterol Sulfate (Albuterol Sulfate) 2.5 Mg/3 Ml Vial.neb 2.5 MG IH Q1H PRN for SHORTNESS OF BREATH, #60 INHALER Albuterol Sulfate (Proair Hfa) 1 Puff Puff 2 PUFF IH Q4H, #1 EA 1 PUFF = 90 MCG Montelukast Sodium (Montelukast Sodium) 10 Mg Tablet 10 MG PO HS for 365 Days, TAB Discontinued Medications: Albuterol/Ipratropium (Combivent Respimat Inhal [place]) 4 Gm Aero 2 PUFF IH Q6H, #1 INH Prednisone (Prednisone) 10 Mg Tab.ds.pk 10 MG PO DAILY, #42 PKG Take 6 tabs(60mg)daily,decrease by 1 tab(10mg)every other day. Patient Instructions Goal/Follow Up Appt: F.u With PCP 1 week Patient to call [facility] if she is interested in outpatient ATS services Activity & Diet Discharge Diet: No Restrictions Activity as Tolerated: Yes MAGNOLIA THOMAS MD Dec 04, 2021 13:21
== END 2021-12-04 13:30 | disposition home or self-care (01) | DRG 191 ==
LOC: EDUNIT# 03:42 → ER FS 03:46 → 4TH 07:48 → UNDOADMIN 07:48 → 4TH 11:05
PROVIDERS: ADMIT Internal Medicine; ATTEND Family Medicine
DX: J44.1 Chronic obstructive pulmonary disease with (acute) exacerbation (principal); J45.902 Unspecified asthma with status asthmaticus; F15.10 Other stimulant abuse, uncomplicated; Z79.52 Long term (current) use of systemic steroids; Z88.0 Allergy status to penicillin
CPT/HCPCS: 36415; 71045; 80053; 80306; 81000; 82805; 85025; 94640; 94760